=== PATIENT | male | born 2000 | race Caucasian/White ===

== ENCOUNTER 2021-02-23 12:03 | Emergency (ER) | payer SELFPAY ==
--- NOTE | 2021-02-23 12:03 | ED.GENADUL_ITS ---
Discharge Plan Disposition Patient Disposition: HOME Condition: Improving Discharge Details Clinical Impression: Abdominal pain, vomiting, and diarrhea, Pain in right testicle Primary Care Provider: Unknown,Unknown ED Provider: Dejah Jacob Home Meds and New Rx's Prescriptions: New ondansetron 4 mg tablet,disintegrating 4 mg PO TID PRN (Reason: nausea and vomiting) Qty: 6 RF: 0 Discharge Instructions Instructions: Acute Nausea and Vomiting (ED), Acute Diarrhea (ED), Abdominal Pain (ED) Additional Instructions: Your testicle ultrasound and CT scan of your abdomen and pelvis today was reassuring and without evidence of abnormal findings. Your urine sample noted bacteria but no other obvious evidence of infection. If your urine culture confirms an infection in the next several days, you will be notified. Drink plenty of fluids and get plenty of rest. Alternate tylenol and motrin as needed and directed for pain. Take Zofran as needed and directed for nausea and vomiting. Follow-up with urology if your testicle pain continues or worsens. Follow-up with your primary care doctor in 1 week. Return to the emergency department with any worsening or new concerning symptoms. Referrals: Rolly Leyva MD [ [facility] STAFF PHYSICIAN] - Vandana Dunaway MD [ [facility] STAFF PHYSICIAN] - Discharge Data Discharge Physician: Dejah Jacob Medical Decision Making 21-year-old male who is a daily marijuana smoker presents for vomiting, diarrhea, abdominal pain and right testicular pain for the past several days. Patient appears significantly anxious. He is afebrile and appears nontoxic. His abdomen is obese, soft and tender in the right and left mid and lower quadrants. He has no rigidity or guarding. He has bilateral testicular tenderness to palpation right no edema, erythema, discharge or lesions. Differential diagnosis includes gastroenteritis, appendicitis, diverticulitis, testicular torsion, cyclic vomiting, etc. We will place an IV, bolus of fluids, screening labs, urinalysis, testicular ultrasound and CT abdomen and pelvis. We will give a Toradol, Zofran and Ativan and reassess. Labs and imaging reviewed. White blood cell count 13. Potassium 3.3. Anion gap 18. Urinalysis notes ketones, bacteria and moderate bilirubin but 0-2 WBCs with negative leukocyte esterase and nitrites. Ultrasound scrotum negative. CT negative for acute findings Patient reassessed and he states he feels better and feels good to go home. We will send a prescription for Zofran electronically to his pharmacy. Discussed with patient that I do not recommend antibiotics for his urine sample at this time and will wait on the urine culture results and he is agreeable with this plan. He was given referral information for general surgery and urology if his symptoms persist. Usual and customary return precautions given prior to discharge. Medical Records Medical records reviewed: Yes I reviewed the patient's medical records. Imaging Data Radiologic Study: Radiologist's impression: CT ABDOMEN PELVIS W CLINICAL HISTORY: b/l mid abd pain, r/o diverticulitis, appendicitis TECHNIQUE: COMPARISON: No exams were available for comparison FINDINGS: CT examination of the abdomen and pelvis was performed with bolus infusion of 100 cc of Omnipaque 350. Images obtained through the lung bases are unremarkable. The liver appears normal with no evidence of a focal mass. Spleen is unremarkable in appearance.. Gallbladder and bile ducts are unremarkable. Pancreas is unremarkable in appearance. Adrenals appear normal bilaterally. Kidneys appear normal with no evidence of renal mass, hydronephrosis, or nephrolithiasis. Unremarkable bladder. There is no evidence of abdominal or pelvic adenopathy. Abdominal aorta is of normal diameter and no abnormality is seen involving major visceral branches.. Appendix is normal. No evidence diverticulitis or bowel obstruction. No significant abdominal wall hernia seen. Impression: Negative CT examination of the abdomen and pelvis. US SCROTUM CLINICAL HISTORY: R testicle pain, r/o torsion TECHNIQUE: Ultrasound performed using standard protocol. COMPARISON: No exams were available for comparison FINDINGS: Scrotal ultrasound was performed according to the usual protocol. Note is made of a small left hydrocele. Testes are symmetrical in normal in echotexture. There is normal Doppler flow seen throughout both testes. There is no intra testicular mass. The epididymi appear normal bilaterally. IMPRESSION: Negative scrotal ultrasound. Lab Data Lab results reviewed: Yes I reviewed the patient's lab results. Labs: 02/23/21 14:23 Urine - Reflex from Ua Urine Culture - Pending Laboratory Tests Range/Units 02/23/21 02/23/21 02/23/21 12:45 12:45 14:23 WBC (4.4-10.8) 10^3/uL 13.07 H RBC (4.36-5.78) 10^6/uL 5.45 Hgb (13.5-17.5) g/dL 16.0 Hct (40.0-50.0) % 46.7 MCV (80-95) fL 85.7 MCH (27.0-33.0) pg 29.4 MCHC (32.0-36.0) % 34.3 RDW (11.8-14.1) % 13.1 Plt Count (130-400) 10^3/uL 385 MPV (8.0-11.0) fL 10.9 Immature Gran % 0.8 Neutrophils % 79.3 Lymphocytes % 12.5 Monocytes % 6.0 Eosinophils % 0.9 Basophils % 0.5 Nucleated RBC % % 0 Absolute Neutrophils (1.2-6.7) 10^3/uL 10.36 H Absolute Lymphocytes (1.2-3.4) 10^3/uL 1.63 Absolute Monocytes (0.1-0.8) 10^3/uL 0.78 Absolute Eosinophils (0.0-0.7) 10^3/uL 0.12 Absolute Basophils (0.0-0.2) 10^3/uL 0.07 Sodium (136-145) mmol/L 140 Potassium (3.5-5.1) mmol/L 3.3 L Chloride (98-107) mmol/L 100 Carbon Dioxide (21.0-32.0) mmol/L 21.9 Anion Gap (3-11) mmol/L 18.1 H BUN (7-18) mg/dL 10 Creatinine (0.70-1.30) mg/dL 1.0 Estimated GFR/1.73 m2 (mL/min/1.73m2) >= 60.00 Glucose (74-106) mg/dL 102 Calcium (8.5-10.1) mg/dL 10.3 H Total Bilirubin (0.2-1.0) mg/dL 0.9 AST (15-37) U/L 18 ALT (16-63) U/L 27 Alkaline Phosphatase (46-116) U/L 150 H Total Protein (6.4-8.2) g/dL 9.4 H Albumin (3.4-5.0) g/dL 4.6 Lipase (73-393) U/L 48 Urine Color (Yellow) Yellow Urine Clarity (Clear) Clear Urine pH (5-8) 6.5 Ur Specific Violet (1.005-1.025) 1.015 Urine Protein (Negative) mg/dL 30 H Urine Ketones (Negative) mg/dL >=160 H Urine Blood (Negative) Negative Urine Nitrite (Negative) Negative Urine Bilirubin (Negative) Moderate H Urine Urobilinogen (Up TO 0.2) EU/dL 1.0 H Ur Leukocyte Esterase (Negative) Negative Urine RBC (0-2) HPF Negative Urine WBC (0-5) HPF 0-2 Ur Epithelial Cells (Negative) HPF Rare Urine Crystals (Negative) HPF Negative Urine Bacteria (Negative) HPF Moderate Urine Casts (Negative) LPF Negative Urine Mucus (Negative) Heavy Urine Other (Negative) Negative Ur Culture Indicated? Yes Urine Glucose (Negative) mg/dL Negative HPI General Mode of arrival: ambulatory . Date/Time Provider Initiated Documentation: 02/23/21 12:03 . Limitations to Documentation: no limitations . Information obtained by: patient . HPI Narrative: Patient is a 21-year-old male who is a daily marijuana smoker who presents to the ED with complaint of abdominal pain, vomiting, diarrhea and testicular pain for the past several days. Patient states his abdominal pain is on both sides of his mid abdomen and is intermittent, aching and currently 4/10. Patient states his pain is in his right testicle and intermittent and sharp. Patient states he has relief of his abdominal pain with marijuana and hot showers. Patient states he had similar abdominal pain 1 year ago which is more intense at that time which was also relieved with hot shower. Patient states he has had 2 episodes daily of watery brown diarrhea for the past several days. He states he vomited 8 times today which is mainly clear bile. He denies any hematochezia or hematemesis. Patient denies any known fever, chest pain, cough, urinary symptoms, penile discharge or genital lesions. Patient states he is not sexually active. Related Data Home Medications Medication Instructions Recorded Confirmed ondansetron 4 mg PO TID PRN #6 tab 02/23/21 Previous Rx's Medication Instructions Recorded ondansetron 4 mg PO TID PRN #6 tab 02/23/21 Allergies Allergy/AdvReac Type Severity Reaction Status Date / Time No Known Allergies Allergy Unverified 02/23/21 12:11 Review of Systems All systems reviewed & are unremarkable except as noted in HPI and below Constitutional Constitutional: Reports as per HPI, Denies chills and Denies fever(s) Eyes Eyes: Denies blurry vision ENT Ears, Nose, Mouth, and Throat: Denies dizziness, Denies sore throat and Denies throat swelling Cardiovascular Cardiovascular: Denies chest pain and Denies dyspnea Respiratory Respiratory: Denies cough and Denies dyspnea Gastrointestinal Gastrointestinal: Reports abdominal pain, Reports diarrhea and Reports vomiting Genitourinary Genitourinary: Denies hematuria, Denies dysuria and Reports testicular pain Musculoskeletal Musculoskeletal: Denies back pain and Denies numbness Integumentary/Breasts Skin/Breast: Denies lesions and Denies rash Neurologic Neurologic: Denies dizziness, Denies localized weakness and Denies numbness Allergic/Immunologic Allergic/Immunologic: Denies throat swelling [facility] Medical History (Updated 02/23/21 @ 14:46 by Dejah Jacob DO) No significant past medical history Surgical History (Updated 02/23/21 @ 12:34 by Dejah Jacob DO) No significant past surgical history Social History Smoking/Tobacco Use Status: Current every day Tobacco Type: cigarettes Smoking risk assessment performed?: Yes Alcohol Intake: current Alcohol Intake frequency: holidays/special occasions only Drug use: Daily Substance use type: marijuana Do you feel safe at home: Yes Do you feel safe in your relationship?: Yes Exam Const General: cooperative and no acute distress HENMT Head: normal to inspection Face and sinus: normal facial exam Eyes General: appearance normal, both eyes and all related structures EOM: EOM intact bilaterally Neck Neck: normal visual inspection and No submandibular swelling Lymphatic: no lymphadenopathy noted Chest Chest: normal inspection of the chest and no tenderness Resp Effort & Inspection: normal respiratory effort and able to speak in complete sentences Auscultation: clear to auscultation bilaterally Cardio Rate: regular rate Rhythm: regular rhythm GI Inspection: obesity Palpation: soft, not firm, not rigid and tender (L and R mid abd) in the LLQ and in the RLQ Auscultation: hypoactive bowel sounds Male General Exam: Yes normal external exam Penis: normal penis Testes: no testicular mass, no testicular swelling and testicular tenderness bilaterally Skin General skin exam: no rashes or lesions noted Neuro General: patient alert, patient awake and patient oriented x3 Cognition: normal cognition Speech: speech normal Motor: muscle tone normal throughout Sensory Exam: no sensory deficits noted Extrem General: normal to inspection, full ROM, capillary refill normal, no calf tenderness bilaterally and no edema Psych Appearance: grossly normal Mental Status: mental status grossly normal Speech and Movement: speech and movement normal Affect: normal affect
[2021-02-23 12:07] VITALS: BP 151/91; PULSE 97; TEMP 35.9; O2SAT 100
--- NOTE | 2021-02-23 12:30 | DI.US_ITS ---
Exam(s) US SCROTUM EXAM: US SCROTUM CLINICAL HISTORY: R testicle pain, r/o torsion TECHNIQUE: Ultrasound performed using standard protocol. COMPARISON: No exams were available for comparison FINDINGS: Scrotal ultrasound was performed according to the usual protocol. Note is made of a small left hydro iron. Testes are symmetrical in normal in echotexture. There is normal Doppler flow seen throughout both t thorpe. There is no intra testicular mass. The epididymi appear normal bilaterally. IMPRESSION: Negative scrotal ultrasound. DATA REPOSITORY:
[2021-02-23 13:01] LABS: Absolute Basophil Count 0.07 10^3/uL (0.0-0.2); Absolute Eosinophil Count 0.12 10^3/uL (0.0-0.7); Absolute Lymphocyte Count 1.63 10^3/uL (1.2-3.4); Absolute Monocyte Count 0.78 10^3/uL (0.1-0.8); Basophils % 0.5; Eosinophils % 0.9; HCT 46.7 % (40.0-50.0); Immature Grans % 0.8; Lymphocytes % 12.5; MCH 29.4 pg (27.0-33.0); MCHC 34.3 % (32.0-36.0); MCV 85.7 fL (80-95); MPV 10.9 fL (8.0-11.0); Neutrophils % 79.3; Nucleated RBC 0 %; Platelet Count 385 10^3/uL (130-400); RBC 5.45 10^6/uL (4.36-5.78); RDW 13.1 % (11.8-14.1); RDW-SD 40.1 fL; WBC 13.07 10^3/uL (4.4-10.8)
[2021-02-23 13:02] LABS: Absolute Neutrophil Count 10.36 10^3/uL (1.2-6.7)
[2021-02-23] MEDS: Ondansetron 4 MG/2 ML VIAL IVP (13:03)
[2021-02-23] MEDS: Ketorolac 30 MG/ML VIAL IVP (13:03)
[2021-02-23] MEDS: Normal Saline Flush 10 ML SYR IVP ×2 (13:03→13:54)
[2021-02-23] MEDS: LORazepam 2 MG/ML VIAL 0.5 MG IVP (13:04)
[2021-02-23] MEDS: Normal Saline 1,000 ML 1000 ML IV (13:05)
[2021-02-23 13:19] LABS: ALT 27 U/L (16-63); AST 18 U/L (15-37); Albumin 4.6 g/dL (3.4-5.0); Alkaline Phosphatase 150 U/L (46-116); Anion Gap 18.1 mmol/L (3-11); BUN 10 mg/dL (7-18); Bilirubin, Total 0.9 mg/dL (0.2-1.0); CO2 21.9 mmol/L (21.0-32.0); Calcium 10.3 mg/dL (8.5-10.1); Chloride 100 mmol/L (98-107); Glucose 102 mg/dL (74-106); Lipase 48 U/L (73-393); Potassium 3.3 mmol/L (3.5-5.1); Sodium 140 mmol/L (136-145); Total Protein 9.4 g/dL (6.4-8.2)
[2021-02-23] MEDS: Omnipaque 350 MG/ML 100 ML BTL IJ (13:52)
[2021-02-23] MEDS: Normal Saline - Diluent 50 ML VIAL IV (13:54)
--- NOTE | 2021-02-23 13:55 | DI.CT_ITS ---
Exam(s) CT ABDOMEN PELVIS W EXAM: CT ABDOMEN PELVIS W CLINICAL HISTORY: b/l mid abd pain, r/o diverticulitis, appendicitis TECHNIQUE: COMPARISON: No exams were available for comparison FINDINGS: CT examination of the abdomen and pelvis was performed with bolus infusion of 100 cc of Omnipaque 350 . Images obtained through the lung bases are unremarkable. The liver appears normal with no evidence of a focal mass. Spleen is unremarkable in appearance.. Gallbladder and bile ducts are unremarkable. Pancreas is unremarkable in appearance. Adrenals appear normal bilaterally. Kidneys appear normal with no evidence of renal mass, hydronephrosis, or nephrolithiasis. Unremarkab le bladder. There is no evidence of abdominal or pelvic adenopathy. Abdominal aorta is of normal diameter and no abnormality is seen involving major visceral branches.. Appendix is normal. No evidence diverticulitis or bowel obstruction. No significant abdominal wall hernia seen. Impression: Negative CT examination of the abdomen and pelvis. RADIATION DOSE DELIVERED: 1,151.93mGy.cm Total DLP 1,151.93mGy.cm Total DLP DATA REPOSITORY: All CT scans at this facility are submitted to the National Radiology Data Registry (NRDR) Dose Index Registry (DIR) with the [employer] ([employer]). RADIATION OPTIMIZATION: All CT scans at this facility use at least one of these dose optimization te chniques: automated exposure control; mA and/or kV adjustment per patient size (includes targeted exa ms where dose is matched to clinical indication); or iterative reconstruction.
[2021-02-23 14:29] VITALS: BP 130/78; PULSE 64; RESP 14; TEMP 36.4; O2SAT 98
[2021-02-23 14:31] LABS: Bilirubin Moderate (Negative); Blood Negative (Negative); Clarity Clear (Clear); Glucose Negative (Negative); Ketones >=160 mg/dL (Negative); Leukocyte Esterase Negative (Negative); Nitrite Negative (Negative); Specific Gravity 1.015 (1.005-1.025); pH 6.5 (5-8)
[2021-02-23 14:51] LABS: Bacteria Moderate HPF (Negative); C & S Indicated? Yes; Casts Negative LPF (Negative); Crystals Negative HPF (Negative); Epithelial Cells Rare HPF (Negative); Mucus Heavy (Negative); Other Cells Negative (Negative); RBC Negative HPF (0-2); WBC 0-2 HPF (0-5)
== END 2021-02-23 15:10 | disposition home or self-care (01) ==
PROVIDERS: Emergency Provider Physician Assistant
DX: N50.811 Right testicular pain (principal); R10.33 Periumbilical pain; R11.2 Nausea with vomiting, unspecified; R19.7 Diarrhea, unspecified; F12.10 Cannabis abuse, uncomplicated
CPT/HCPCS: 36415; 80053; 83690; 96361; 96374; 96375; 99285; 74177; 76870; 81003; 81015; 85025; 87086; 99284; J1885; J2060; J2405; J3490